=== PATIENT | female | born 2000 | race Caucasian/White ===

== ENCOUNTER 2021-02-05 22:13 | Emergency (ER) | payer OTHER ==
[2021-02-05] MEDS ORDERED: HYDROcodone/Acetaminophen 10/325 mg Tablet ONE (22:33)
== END 2021-02-05 23:10 | disposition home or self-care (01) ==
LOC: CSHERS 22:13
DX: S63.501A Unspecified sprain of right wrist, initial encounter (principal); W55.12XA Struck by horse, initial encounter

== ENCOUNTER 2021-10-04 10:18 | Emergency (ER) | payer BC, OTHER ==
[2021-10-04] MEDS ORDERED: Ondansetron PF 4 MG/2 ML Vial ONE (10:43)
[2021-10-04 11:08] LABS: #Basophils 0.1 10x3/uL (0.0-0.2); #Eosinphils 0.1 10x3/uL (0.0-0.5); #Neutrophils 9.4 10x3/uL (1.5-8.4); %Basophils 0.6 % (0.0-2.0); %Eosinophils 0.6 % (0.0-6.0); %Lymphocytes 21.8 % (18.0-47.0); %Monocytes 7.2 % (0.0-10.0); %Neutrophils 68.6 % (40.0-75.0); Hemoglobin 14.9 g/dL (12.0-15.5); Mean Corpuscular HGB CONC 33.1 g/dL (32.0-36.0); Mean Corpuscular Hemoglobin 29.4 pg (27.0-33.0); Mean Corpuscular Volume 88.9 fl (81.6-98.3); Mean Platelet Volume 11.5 fl (7.4-10.4); Platelet Count 276 10x3/uL (150-450); RBC Distribution Width 11.9 % (11.5-14.5); Red Blood Cell (RBC) Count 5.06 10x6/uL (3.90-5.03); White Blood Cell (WBC) Count 13.7 10x3/uL (3.5-10.5)
[2021-10-04 11:17] LABS: ALT (SGPT) 37 U/L (8-55); AST (SGOT) 25 U/L (5-34); Albumin 4.3 g/dL (3.5-5.0); Alkaline Phosphatase 100 U/L (40-110); Anion Gap 14 mmol/L (10-20); BUN (Urea Nitrogen) 9 mg/dL (7.0-18.7); Bilirubin, Total 0.4 mg/dL (0.2-1.2); Calc. Creatinine Clearance 0 mL/min (70-130); Calcium 9.5 mg/dL (7.8-10.44); Carbon Dioxide 20 mmol/L (22-29); Chloride 105 mmol/L (98-107); Globulin 3.6 g/dL (2.4-3.5); Glucose 81 mg/dL (70-105); Lipase 17 U/L (8-78); Potassium 4.2 mmol/L (3.5-5.1); Protein, Total 7.9 g/dL (6.0-8.3); Sodium 135 mmol/L (136-145)
[2021-10-04 12:09] LABS: Bilirubin Neg (Negative); Blood, Urine Negative (Negative); Clarity Clear (Clear); Glucose, Urine (Dipstick) Normal (Negative); Ketone, Urine Negative (Negative); Leukocyte Negative (Negative); Nitrite Negative (Negative); Protein, Urine (Dipstick) Negative (Neg-Trace); Specific Gravity, Urine 1.015 (1.002-1.036); Urobilinogen Normal mg/dL (Less than 2); pH, Urine 6.5 (5.0-9.0)
== END 2021-10-04 13:40 | disposition home or self-care (01) ==
LOC: CSHERS 10:18
DX: O21.9 Vomiting of pregnancy, unspecified (principal); Z3A.01 Less than 8 weeks gestation of pregnancy
CPT/HCPCS: 80053; 81003; 83690; 84702; 85025; 96374; J2405

== ENCOUNTER 2022-04-22 19:13 | Day surgery (SDC) | payer BC ==
[2022-04-22 20:05] VITALS: BMI 35.7
[2022-04-22] MEDS ORDERED: hydrALAZINE 20 MG/ML VIAL SLOW IVP PRN (20:41)
[2022-04-22] MEDS ORDERED: Lactated Ringer's 1,000 ML IV SCH (21:15)
[2022-04-22 21:43] LABS: Bilirubin Neg (Negative); Blood, Urine Negative (Negative); Clarity Clear (Clear); Glucose, Urine (Dipstick) Normal (Negative); Ketone, Urine Negative (Negative); Leukocyte Negative (Negative); Nitrite Negative (Negative); Protein, Urine (Dipstick) Negative (Neg-Trace); Specific Gravity, Urine 1.005 (1.002-1.036); Urobilinogen Normal mg/dL (Less than 2)
== END 2022-04-22 22:35 | disposition home or self-care (01) ==
LOC: CSHLD/OP 19:13
PROVIDERS: ATTEND Obstetrics & Gynecology
DX: O36.8130 Decreased fetal movements, third trimester, not applicable or unspecified (principal); O26.893 Other specified pregnancy related conditions, third trimester; R35.0 Frequency of micturition; O99.343 Other mental disorders complicating pregnancy, third trimester; F41.9 Anxiety disorder, unspecified; Z3A.35 35 weeks gestation of pregnancy
CPT/HCPCS: 51701; 59025; 81003; 96360; 99282

== ENCOUNTER 2022-05-26 03:42 | Day surgery (SDC) | payer BC ==
[2022-05-26 04:12] VITALS: BMI 35.9
[2022-05-26] MEDS ORDERED: hydrALAZINE 20 MG/ML VIAL SLOW IVP PRN (06:57)
== END 2022-05-26 06:40 | disposition home or self-care (01) ==
LOC: CSHLD/OP 03:42
PROVIDERS: ATTEND Obstetrics & Gynecology
DX: O47.1 False labor at or after 37 completed weeks of gestation (principal); Z3A.39 39 weeks gestation of pregnancy
CPT/HCPCS: 99283

== ENCOUNTER 2022-05-26 21:10 | Inpatient (IN) | payer BC, MEDICAID ==
[~2022-05-26 21:10] MED LIST: Lidocaine 2% MPF 10 ML AMP (For Epidural Use) ONE
[2022-05-26 21:49] VITALS: BMI 35.9
[2022-05-26 21:57] LABS: Fetal Membranes Rupture RUPTURE DETECTED (No Rupture)
[2022-05-26] MEDS ORDERED: Promethazine HCl 25 MG/ML VIAL IM PRN (22:51)
[2022-05-26] MEDS ORDERED: Ondansetron PF 4 MG/2 ML Vial IVP PRN (22:51)
[2022-05-26] MEDS ORDERED: Ibuprofen 800 MG TAB PO PRN (22:51)
[2022-05-26] MEDS ORDERED: HYDROcodone/Acetaminophen 5/325 mg Tablet PO PRN (22:51)
[2022-05-26] MEDS ORDERED: hydrALAZINE 20 MG/ML VIAL SLOW IVP PRN (22:51)
[2022-05-26] MEDS ORDERED: Lidocaine 1% (PF) 30 ML VIAL SC PRN (22:51)
[2022-05-26] MEDS ORDERED: Lactated Ringer's 1,000 ML IV SCH (23:00)
[2022-05-26] MEDS ORDERED: NS w/ Oxytocin 30 units 500 ML IV SCH (23:00)
[2022-05-26] MEDS ORDERED: Penicillin G Potassium 5 MILL.UNITS in Sodium Chloride 0.9% 100 ML IVPB SCH (23:59)
[2022-05-27 01:13] LABS: Hemoglobin 11.9 g/dL (12.0-15.5); Mean Corpuscular HGB CONC 33.6 g/dL (32.0-36.0); Mean Corpuscular Hemoglobin 29.1 pg (27.0-33.0); Mean Corpuscular Volume 86.6 fl (81.6-98.3); Mean Platelet Volume 12.5 fl (7.4-10.4); Platelet Count 194 10x3/uL (150-450); RBC Distribution Width 14.4 % (11.5-14.5); Red Blood Cell (RBC) Count 4.09 10x6/uL (3.90-5.03)
[2022-05-27 01:26] LABS: Syphilis Antibody Nonreactive (Nonreactive); Syphilis Antibody Index 0.05 S/CO (<1.00 Non-Reactive)
[2022-05-27 01:27] LABS: HBSAg Index 0.18 S/CO (0-0.99); Hep B Surf Ag Non-Reactive S/CO (NonReactive)
[2022-05-27] MEDS ORDERED: Fentanyl 2 mcg/Bup 0.1% Cadd 100 ML ONE ×2 (02:35→11:04)
[2022-05-27] MEDS ORDERED: ePHEDrine Sulfate 50 MG/10 ML VIAL SLOW IVP PRN (03:00)
[2022-05-27] MEDS ORDERED: Promethazine HCl 25 MG/ML VIAL IM PRN (03:00)
[2022-05-27] MEDS ORDERED: Ondansetron PF 4 MG/2 ML Vial IVP PRN (03:00)
[2022-05-27] MEDS ORDERED: Fentanyl 2 mcg/Bupivacaine 0.1% Cassette 100 ML EPIDURAL SCH (03:00)
[2022-05-27] MEDS ORDERED: Acetaminophen 325 MG TAB PO PRN (03:00)
[2022-05-27] MEDS ORDERED: Communication Order-Pharmacy FS SCH (03:00)
[2022-05-27] MEDS ORDERED: Moisturizing Cream (Eucerin) 113 GM JAR TOP PRN (03:00)
[2022-05-27] MEDS ORDERED: diphenhydrAMINE 50 MG/ML VIAL IVP PRN (03:00)
[2022-05-27] MEDS ORDERED: Naloxone HCl 0.4 mg/ml Vial IVP PRN ×2 (03:00)
[2022-05-27] MEDS ORDERED: Lactated Ringer's 500 ML IV PRN (03:00)
[2022-05-27] MEDS: Penicillin G 2.5 MILL.units 2.5 MILL.UNITS in Premix Bag 1 BAG IVPB SCH ×6 (03:57→23:53)
[2022-05-27 05:27] LABS: SARS-CoV-2 NAA Rapid Test Not Detected (NotDetected)
[2022-05-27] MEDS: Lactated Ringer's 1,000 ML IV SCH ×2 (11:02→20:02)
[2022-05-28] MEDS ORDERED: CEFAZOLIN 2 GM VIAL ONE (00:25)
[2022-05-28] MEDS ORDERED: Azithromycin 500 MG VIAL ONE (00:26)
[2022-05-28] MEDS ORDERED: Azithromycin 500 MG in Sodium Chloride 0.9% 250 ML 250 ML IVPB ONE (01:00)
[2022-05-28] MEDS ORDERED: CEFAZOLIN 2 GM VIAL SLOW IVP SCH (01:00)
[2022-05-28] MEDS ORDERED: Carboprost 250 MCG/ML AMP ONE (01:00)
[2022-05-28] MEDS ORDERED: Misoprostol 200 MCG TAB ONE (01:01)
[2022-05-28] MEDS ORDERED: Tranexamic Acid 1,000 MG/10 ML VIAL ONE (01:02)
[2022-05-28] MEDS ORDERED: PROPOFOL 0 ML ONE (01:19)
[2022-05-28] MEDS ORDERED: ePHEDrine Sulfate 50 MG/10 ML VIAL ONE (01:19)
[2022-05-28] MEDS ORDERED: Succinylcholine 200 MG/10 ml SYRINGE FS ONE (01:19)
[2022-05-28] MEDS ORDERED: Ondansetron PF 4 MG/2 ML Vial ONE (01:19)
[2022-05-28] MEDS ORDERED: Dexamethasone 4 mg/ml Vial ONE (01:19)
[2022-05-28] MEDS ORDERED: PHENYLEPHRINE-NS 100 MCG/ML 10 ML SYRINGE ONE (01:20)
[2022-05-28] MEDS ORDERED: Oxytocin 10 UNITS/ML VIAL ONE ×2 (01:21→02:11)
[2022-05-28] MEDS ORDERED: Lidocaine 2% MPF 10 ML AMP (For Epidural Use) ONE ×2 (01:31)
[2022-05-28] MEDS ORDERED: Morphine PF 10 MG/10 ML VIAL ONE (01:39)
[2022-05-28] MEDS ORDERED: Ondansetron PF 4 MG/2 ML Vial IVP PRN (01:47)
[2022-05-28] MEDS ORDERED: Naloxone HCl 0.4 mg/ml Vial IV PRN (01:47)
[2022-05-28] MEDS ORDERED: Promethazine HCl 25 MG SUPP PR PRN (01:47)
[2022-05-28] MEDS ORDERED: Naloxone HCl 0.4 mg/ml Vial IVP PRN ×2 (01:47)
[2022-05-28] MEDS ORDERED: Moisturizing Cream (Eucerin) 113 GM JAR TOP PRN (01:47)
[2022-05-28] MEDS ORDERED: diphenhydrAMINE 50 MG/ML VIAL IVP PRN (01:47)
[2022-05-28] MEDS ORDERED: Promethazine HCl 25 MG/ML VIAL IM PRN (01:47)
[2022-05-28] MEDS ORDERED: Ketorolac Tromethamine 30 MG/ML VIAL ONE (01:55)
[2022-05-28] MEDS ORDERED: Communication Order-Pharmacy FS SCH (02:00)
[2022-05-28] MEDS ORDERED: Boostrix 0.5 ML (Tdap) VIAL IM ONE (05:38)
[2022-05-28] MEDS ORDERED: Misoprostol 200 MCG TAB PR PRN (05:38)
[2022-05-28] MEDS ORDERED: hydrALAZINE 20 MG/ML VIAL SLOW IVP PRN (05:38)
[2022-05-28] MEDS ORDERED: NS w/ Oxytocin 30 units 500 ML IV SCH (06:00)
[2022-05-28] MEDS: Lactated Ringer's 1,000 ML IV SCH ×3 (07:22→22:46)
[2022-05-28] MEDS: Ferrous Sulfate 325 MG TAB PO SCH ×2 (07:23→22:43)
[2022-05-28] MEDS: Docusate 100 MG CAP PO SCH ×2 (08:04→21:12)
[2022-05-28] MEDS: Prenatal Vitamin 1 TAB PO SCH (08:04)
[2022-05-28] MEDS: Ketorolac Tromethamine 30 MG/ML VIAL IVP PRN ×2 (10:11→17:12)
[2022-05-28] MEDS ORDERED: HYDROcodone/Acetaminophen 5/325 mg Tablet PO PRN (14:00)
[2022-05-28] MEDS: HYDROcodone/Acetaminophen 5/325 mg Tablet PO PRN ×2 (15:36→22:43)
[2022-05-28] MEDS: Simethicone Chewable 80 MG TAB PO PRN (21:20)
[2022-05-29 04:30] LABS: Hemoglobin 8.5 g/dL (12.0-15.5); Mean Corpuscular HGB CONC 33.5 g/dL (32.0-36.0); Mean Corpuscular Hemoglobin 29.3 pg (27.0-33.0); Mean Corpuscular Volume 87.6 fl (81.6-98.3); Mean Platelet Volume 12.1 fl (7.4-10.4); Platelet Count 151 10x3/uL (150-450); RBC Distribution Width 14.6 % (11.5-14.5); White Blood Cell (WBC) Count 14.1 10x3/uL (3.5-10.5)
[2022-05-29] MEDS: Ibuprofen 800 MG TAB PO SCH ×3 (05:23→21:14)
[2022-05-29] MEDS: Lactated Ringer's 1,000 ML IV SCH ×2 (07:54→13:33)
[2022-05-29] MEDS: Docusate 100 MG CAP PO SCH ×2 (08:36→21:11)
[2022-05-29] MEDS: Ferrous Sulfate 325 MG TAB PO SCH ×2 (08:36→21:11)
[2022-05-29] MEDS: Simethicone Chewable 80 MG TAB PO PRN (08:36)
[2022-05-29] MEDS: Prenatal Vitamin 1 TAB PO SCH (08:42)
[2022-05-29] MEDS: HYDROcodone/Acetaminophen 5/325 mg Tablet PO PRN ×2 (13:32→21:16)
[2022-05-30] MEDS: HYDROcodone/Acetaminophen 5/325 mg Tablet PO PRN (01:33)
[2022-05-30] MEDS: Ibuprofen 800 MG TAB PO SCH ×2 (05:45→13:54)
[2022-05-30 07:34] VITALS: BP 135/78; TEMP 98.4
[2022-05-30] MEDS: Docusate 100 MG CAP PO SCH (09:55)
[2022-05-30] MEDS: Prenatal Vitamin 1 TAB PO SCH (09:55)
[2022-05-30] MEDS: Ferrous Sulfate 325 MG TAB PO SCH (09:55)
[2022-05-30] MEDS: Lactated Ringer's 1,000 ML IV SCH ×4 (10:21→13:54)
[2022-05-30] MEDS: Penicillin G 2.5 MILL.units 2.5 MILL.UNITS in Premix Bag 1 BAG IVPB SCH (10:25)
== END 2022-05-30 14:30 | disposition home or self-care (01) | DRG 788 ==
LOC: CSHLD/OP 21:10 → CSHLD 22:51 → UNDOADMIN 05-27 04:38 → CSHLD 05-27 04:38 → CSHPP 05-28 05:05
PROVIDERS: ADMIT Obstetrics & Gynecology; ATTEND Obstetrics & Gynecology
PROC: 10D00Z1 Extraction of Products of Conception, Low, Open Approach (ICD-10-PCS; principal; 2022-05-28)
DX: O42.02 Full-term premature rupture of membranes, onset of labor within 24 hours of rupture (principal); Z3A.39 39 weeks gestation of pregnancy; Z37.0 Single live birth; Z20.822 Contact with and (suspected) exposure to COVID-19; F41.9 Anxiety disorder, unspecified; O99.344 Other mental disorders complicating childbirth; Z79.899 Other long term (current) drug therapy; Z91.041 Radiographic dye allergy status; O99.824 Streptococcus B carrier state complicating childbirth; O77.0 Labor and delivery complicated by meconium in amniotic fluid; O32.4XX0 Maternal care for high head at term, not applicable or unspecified; O62.1 Secondary uterine inertia; O32.8XX0 Maternal care for other malpresentation of fetus, not applicable or unspecified; Z79.82 Long term (current) use of aspirin; Z90.89 Acquired absence of other organs
CPT/HCPCS: 36415; 51702; 84112; 85027; 86780; 86850; 86900; 86901; 87340; 99283; 99285; J1100; J1885; J2274; J2405; J2540; J2590; J2704; J3490; J7120; U0002

== ENCOUNTER 2025-05-01 09:31 | Outpatient (CLI) | payer BC ==
[2025-05-01 11:06] LABS: Hematocrit 44.3 % (34.9-44.5)
== END 2025-05-01 09:32 | disposition home or self-care (01) ==
LOC: CSHLAB 09:31
PROVIDERS: ATTEND Otolaryngology Otolaryngic Allergy
DX: Z01.812 Encounter for preprocedural laboratory examination (principal); J30.9 Allergic rhinitis, unspecified; J34.2 Deviated nasal septum; J34.3 Hypertrophy of nasal turbinates
CPT/HCPCS: 85014